=== PATIENT | female | born 1975 | race African-American/Black ===

== ENCOUNTER 2019-01-20 16:20 | Emergency (ER) | payer SELFPAY ==
[~2019-01-20] VITALS: Ht 167.6 cm; Wt 65.8 kg
[2019-01-20 16:32] VITALS: BP 165/93
[2019-01-20 16:42] LABS: BILIRUBIN,URINE NEGATIVE (NEG); CLARITY,URINE CLOUDY; COLOR,URINE YELLOW; NITRITE,URINE POSITIVE (NEG); PH,URINE 5.5; PROTEIN,URINE NEGATIVE (NEG-TRACE); UROBILINOGEN,URINE 0.2 mg/dL (0.2 mg/dL)
[2019-01-20 16:52] LABS: BACTERIA,URINE MANY /HPF (0-FEW); RBC,URINE 0 /HPF (0-2); SQUAMOUS EPITHELIAL CELL,UR MOD /LPF; WBC,URINE >40 /HPF (0-4)
--- NOTE | 2019-01-20 16:54 | PHYS DOC ---
Past Medical History Past Medical History: Other Additional Past Medical Histor: dental caries Past Surgical History: Other Additional Past Surgical Histo: right ankle Smoking: Cigarettes Alcohol Use: None Drug Use: None Adult General Chief Complaint Chief Complaint: TEST HPI HPI 43 y/o female presents with concern for possible . Patient reports her last menstrual period was 10/03/2018. Patient reports she has had unprotected sex. Patient reports she tried using a [id number] test but the results came back "inconclusive ". Reports concern because she has been having "twinges" suprapubically. Review of Systems Review of Systems Constitutional: Denies fever or chills Eyes: Denies redness or eye pain HENT: Denies nasal congestion or sore throat Respiratory: Denies cough or shortness of breath Cardiovascular: Denies chest pain or palpitations GI: Denies abdominal pain, nausea, or vomiting : Denies dysuria or hematuria Musculoskeletal: Denies back pain or joint pain Integument: Denies rash or skin lesions Neurologic: Denies headache, focal weakness or sensory changes Complete systems were reviewed and found to be within normal limits, except as documented in this note. Current Medications Current Medications Current Medications Medications (Trade) Dose Ordered Sig/Jeffry Start Time Stop Time Status Last Admin Dose Admin Cephalexin HCl (Keflex) 500 mg 1X ONCE 01/20/19 17:00 01/20/19 17:01 UNV Allergies Allergies Allergies Coded Allergies Type Severity Reaction Last Updated Verified Penicillins Allergy Intermediate hives 02/01/15 Yes Physical Exam Physical Exam Constitutional: Well developed, well nourished, no acute distress, non-toxic appearance HENT: Normocephalic, atraumatic, oropharynx moist Eyes: Conjunctiva normal, no discharge Neck: Normal range of motion, no tenderness, supple Cardiovascular: Heart rate normal, regular rhythm Lungs & Thorax: Bilateral breath sounds clear to auscultation, no wheezing Abdomen: Soft, no tenderness Skin: Warm, dry, no erythema, no rash Extremities: No tenderness, ROM intact, no edema Neurologic: Alert and oriented X 3, no focal deficits noted Psychologic: Affect normal, judgement normal Current Patient Data Lab Values Laboratory Tests Test 01/20/19 16:30 01/20/19 16:35 Urine Collection Type Unknown Urine Color Yellow Urine Clarity Cloudy Urine pH 5.5 Urine Specific [place] 1.020 Urine Protein Negative mg/dL (NEG-TRACE) Urine Glucose (UA) Negative mg/dL (NEG) Urine Ketones (Stick) Negative mg/dL (NEG) Urine Blood Moderate (NEG) Urine Nitrite Positive (NEG) Urine Bilirubin Negative (NEG) Urine Urobilinogen Dipstick 0.2 mg/dL (0.2 mg/dL) Urine Leukocyte Esterase Moderate (NEG) Urine RBC 0 /HPF (0-2) Urine WBC >40 /HPF (0-4) Urine Squamous Epithelial Cells Mod /LPF Urine Bacteria Many /HPF (0-FEW) Urine Mucus Marked /LPF POC Urine HCG, Qualitative Hcg negative (Negative) EKG EKG [] Radiology/Procedures Radiology/Procedures [] Course & Med Decision Making Course & Med Decision Making Pertinent Lab studies reviewed. (See chart for details) Patient presents for testing. Patient reports she has taken [id number] test which was inconclusive. Patient reports last menstrual period was 10/03/2018. Patient denies other complaint. Urine negative. UA with signs of infection. Empiric antibiotics given. Patient stable for discha rge with outpatient follow-up with PCP. Discussed findings and plan with patient, who acknowledges understanding and agreement. Dragon Disclaimer Dragon Disclaimer This electronic medical record was generated, in whole or in part, using a voice recognition dictation system. Departure Departure Impression: Primary Impression: examination or test, negative result Additional Impression: UTI (urinary tract infection) Disposition: 01 HOME, SELF-CARE Condition: STABLE Referrals: NO PCP (PCP) Patient Instructions: Medical Screening Exam, Urinary Tract Infection, Ghal-hr-Bmen Additional Instructions: It appears you might be going through Menopause. Please follow with your doctor regarding. Scripts Cephalexin (KEFLEX) 500 Mg Capsule 500 MG PO TID for 7 Days, #21 CAP Prov: RANDELL FOX DO 01/20/19 Problem Qualifiers Additional Impression: UTI (urinary tract infection) Urinary tract infection type: acute cystitis Hematuria presence: without hematuria Qualified Codes: N30.00 - Acute cystitis without hematuria RANDELL FOX DO Jan 20, 2019 16:54
[2019-01-20] MEDS ORDERED: CEPH-264 PO (16:56)
[2019-01-20] MEDS ORDERED: CEPHALEXIN 250 MG CAPSULE. PO ONE (17:00)
== END 2019-01-20 17:13 | disposition home or self-care (01) ==
LOC: ER 16:20
DX: Z32.02 Encounter for pregnancy test, result negative (principal); N30.00 Acute cystitis without hematuria; F17.210 Nicotine dependence, cigarettes, uncomplicated; Z88.0 Allergy status to penicillin
CPT/HCPCS: 81001; 81025; 87086; 87186; 99284

== ENCOUNTER 2019-03-18 13:38 | Emergency (ER) | payer SELFPAY ==
[~2019-03-18] VITALS: Ht 157.5 cm; Wt 82.1 kg
[~2019-03-18 13:38] MED LIST: CEPH-264 PO
[2019-03-18] MEDS ORDERED: KETOROLAC 30 MG/ML VIAL. IM STA (13:50)
[2019-03-18 13:54] VITALS: BP 97/56
--- NOTE | 2019-03-18 13:54 | PHYS DOC ---
Past Medical History Past Medical History: Other Additional Past Medical Histor: dental caries Past Surgical History: No Surgical History Additional Past Surgical Histo: right ankle Alcohol Use: Occasionally Drug Use: None Adult General Chief Complaint Chief Complaint: FOOT INJURY PAIN HPI HPI Patient is a 43 year old female that presents to ER with right foot pain that started at 10 AM this morning after she tripped into a pothole when she was walking through a parking lot. The patient states that she cannot bear weight on the foot. Rates her pain as 10 out of 10 in severity and sharp however she's not taking medicine before arrival. Review of Systems Review of Systems Constitutional: Denies fever or chills [] Eyes: Denies change in visual acuity, redness, or eye pain [] HENT: Denies nasal congestion or sore throat [] Respiratory: Denies cough or shortness of breath [] Cardiovascular: No additional information not addressed in HPI [] GI: Denies abdominal pain, nausea, vomiting, bloody stools or diarrhea [] : Denies dysuria or hematuria [] Musculoskeletal: Reports R foot pain. Integument: Denies rash or skin lesions [] Neurologic: Denies headache, focal weakness or sensory changes [] Endocrine: Denies polyuria or polydipsia [] Complete systems were reviewed and found to be within normal limits, except as documented in this note. Current Medications Current Medications Current Medications Medications (Trade) Dose Ordered Sig/Jeffry Start Time Stop Time Status Last Admin Dose Admin Ketorolac Tromethamine (Toradol 30mg Vial) 30 mg 1X STAT 03/18/19 13:50 03/18/19 13:52 DC 03/18/19 13:59 30 MG Allergies Allergies Allergies Coded Allergies Type Severity Reaction Last Updated Verified Penicillins Allergy Intermediate hives 02/01/15 Yes Physical Exam Physical Exam Constitutional: Well developed, well nourished, no acute distress, non-toxic appearance. [] HENT: Normocephalic, atraumatic, bilateral external ears normal, oropharynx moist, no oral exudates, nose normal. [] Eyes: PERRLA, EOMI, conjunctiva normal, no discharge. [] Neck: Normal range of motion, no tenderness, supple, no stridor. [] Cardiovascular:Heart rate regular rhythm, no murmur [] Lungs & Thorax: Bilateral breath sounds clear to auscultation [] Abdomen: Bowel sounds normal, soft, no tenderness, no masses, no pulsatile masses. [] Skin: Warm, dry, no erythema, no rash. [] Back: No tenderness, no CVA tenderness. [] Extremities: Tenderness to anterior of foot. Minor edema. Neurovascular intact. Neurologic: Alert and oriented X 3, normal motor function, normal sensory function, no focal deficits noted. [] Psychologic: Affect normal, judgement normal, mood normal. [] Current Patient Data Vital Signs Vital Signs Date Time Temp Pulse Resp B/P (MAP) Pulse Ox O2 Delivery O2 Flow Rate FiO2 03/18/19 13:54 98.6 65 16 97/56 (70 94 Room Air 98.6 EKG EKG [] Radiology/Procedures Radiology/Procedures [][facility] [address] [place] [address] IMAGING REPORT Signed PATIENT: RUSTAM WYATTOUNT: [id number] : 1975 LOCATION: ER AGE: 43 SEX: F EXAM STATUS: REG ER ORD. PHYSICIAN: RANDELL GOMES APRN REASON: right ankle pain after fall today. tenderness PROCEDURE: FOOT RIGHT 3V AP, lateral, and oblique views of the right foot and ankle were obtained. History: Pain after fall today now with tenderness Comparison: none. There is no fracture, subluxation or dislocation. No significant degenerative changes, or significant soft tissue swelling seen. Old posttraumatic changes with presumed postoperative repair is seen in the distal fibula and in the interosseous membrane between the tibia and fibula. Electronically signed by: Osmel Hartley MD (03/18/2019 2:38 PM) [facility] DICTATED and SIGNED BY: OSMEL HARTLEY MD DATE: 03/18/19 1432 Course & Med Decision Making Course & Med Decision Making Pertinent Labs and Imaging studies reviewed. (See chart for details) Will get foot and ankle x-ray and will give Toradol. Dragon Disclaimer Dragon Disclaimer This electronic medical record was generated, in whole or in part, using a voice recognition dictation system. Departure Departure Impression: Primary Impression: Foot pain, right Disposition: 01 HOME, SELF-CARE Condition: STABLE Referrals: NO PCP (PCP) Patient Instructions: Elastic Bandage and RICE Additional Instructions: Thank you for visiting [facility]. We appreciate you trusting us with your care. If any additional problems come up don't hesitate to return to visit us. Please follow up with your primary care provider so they can plan additional care if needed and know about the problem that you had. If symptoms worsen come back to the Emergency Department. Any concerning symptoms that start such as chest pain, shortness of air, weakness or numbness on one side of the body, running high fevers or any other concerning symptoms return to the ER. RANDELL GOMES APRN Mar 18, 2019 13:54
--- NOTE | 2019-03-18 14:41 | RAD ---
AP, lateral, and oblique views of the right foot and ankle were obtained. History: Pain after fall today now with tenderness Comparison: none. There is no fracture, subluxation or dislocation. No significant degenerative changes, or significant soft tissue swelling seen. Old posttraumatic changes with presumed postoperative repair is seen in the distal fibula and in the interosseous membrane between the tibia and fibula. Electronically signed by: Osmel Pantoja MD (03/18/2019 2:38 PM) [facility]
--- NOTE | 2019-03-18 14:41 | RAD ---
AP, lateral, and oblique views of the right foot and ankle were obtained. History: Pain after fall today now with tenderness Comparison: none. There is no fracture, subluxation or dislocation. No significant degenerative changes, or significant soft tissue swelling seen. Old posttraumatic changes with presumed postoperative repair is seen in the distal fibula and in the interosseous membrane between the tibia and fibula. Electronically signed by: Osmel Pantoja MD (03/18/2019 2:38 PM) [facility]
== END 2019-03-18 15:04 | disposition home or self-care (01) ==
LOC: ER 13:38
DX: M79.671 Pain in right foot (principal); R60.0 Localized edema; Z88.0 Allergy status to penicillin; W17.2XXA Fall into hole, initial encounter; Y93.01 Activity, walking, marching and hiking; Y92.481 Parking lot as the place of occurrence of the external cause; Y99.8 Other external cause status
CPT/HCPCS: 73610; 73630; 96372; 99284; J1885